=== PATIENT | female | born 1985 | race Hispanic/Latino ===

== ENCOUNTER 2018-06-24 19:25 | Emergency (ER) | payer OTHER ==
[2018-06-24] MEDS ORDERED: HYDROCODONE/ACETAMINOPHEN 10/325 MG TAB ONE (20:03)
[2018-06-24] MEDS ORDERED: LIDOCAINE HCL 1% 20 ML VIAL ONE (23:12)
== END 2018-06-25 00:30 | disposition home or self-care (01) ==
LOC: EDH 19:25
DX: S81.011A Laceration without foreign body, right knee, initial encounter (principal); S40.011A Contusion of right shoulder, initial encounter; V86.99XA Unspecified occupant of other special all-terrain or other off-road motor vehicle injured in nontraffic accident, initial encounter; Y93.89 Activity, other specified; Y92.89 Other specified places as the place of occurrence of the external cause; Y99.8 Other external cause status
CPT/HCPCS: 29505; 71045; 73030; 73562